=== PATIENT | female | born 1965 | race Caucasian/White ===

== ENCOUNTER → 2016-09-01 | Outpatient (CLI) | payer MEDICAID ==
[2016-09-01 09:05] LABS: ALT 21 U/L (9-52); AST 21 U/L (14-36); Alkaline Phosphatase 56 U/L (38-126); Anion Gap 10 mmol/L; Blood Urea Nitrogen 12 mg/dL (7-17); Calcium 9.6 mg/dL (8.4-10.2); Carbon Dioxide 25 mmol/L (22-30); Chloride 104 mmol/L (98-107); Cholesterol 218 mg/dL (<200); Glucose 101 mg/dL (74-99); Non-African American GFR(MDRD) >60 (>60 ml/min/1.73 sqM); Potassium 4.6 mmol/L (3.5-5.1); Sodium 139 mmol/L (137-145); Total Bilirubin 0.7 mg/dL (0.2-1.3); Triglycerides 57 mg/dL (<150)
[2016-09-01 09:15] LABS: HDL Cholesterol 158 mg/dL (40-60)
== END | disposition home or self-care (01) ==
LOC: LABWHC1 08:03
PROVIDERS: ATTEND Internal Medicine Endocrinology, Diabetes & Metabolism
DX: E10.65 Type 1 diabetes mellitus with hyperglycemia (principal)
CPT/HCPCS: 36415; 80053; 80061; 82043

== ENCOUNTER → 2017-03-02 | Outpatient (CLI) | payer MEDICAID | END | disposition home or self-care (01) | LOC: LABWHC1 10:04 | PROVIDERS: ATTEND Internal Medicine Endocrinology, Diabetes & Metabolism | DX: E10.65 Type 1 diabetes mellitus with hyperglycemia (principal) | CPT/HCPCS: 36415; 82533; 84443 ==

== ENCOUNTER → 2017-07-14 | Outpatient (CLI) | payer MEDICAID ==
[2017-07-14 08:47] LABS: Basophils # (A) 0.1 k/uL (0-0.2); Basophils % (A) 1 %; Eosinophils # (A) 0.2 k/uL (0-0.7); Eosinophils % (A) 4 %; HCT 45.8 % (34.0-46.0); HGB 14.6 gm/dL (11.4-16.0); Lymphocytes # (A) 1.6 k/uL (1.0-4.8); Lymphocytes % (A) 38 %; MCH 32.7 pg (25.0-35.0); MCHC 31.9 g/dL (31.0-37.0); MCV 102.6 fL (80.0-100.0); Mean Platelet Volume 6.3; Monocytes # (A) 0.5 k/uL (0-1.0); Monocytes % (A) 11 %; Neutrophils # (A) 1.8 k/uL (1.3-7.7); Neutrophils % (A) 42 %; Platelet Count 325 k/uL (150-450); RBC 4.47 m/uL (3.80-5.40); RDW 11.7 % (11.5-15.5); WBC 4.3 k/uL (3.8-10.6)
[2017-07-14 08:53] LABS: ALT 18 U/L (9-52); AST 16 U/L (14-36); Albumin 4.5 g/dL (3.5-5.0); Alkaline Phosphatase 62 U/L (38-126); Anion Gap 11 mmol/L; Blood Urea Nitrogen 17 mg/dL (7-17); Calcium 10.5 mg/dL (8.4-10.2); Carbon Dioxide 26 mmol/L (22-30); Chloride 104 mmol/L (98-107); Cholesterol 235 mg/dL (<200); Potassium 4.5 mmol/L (3.5-5.1); Sodium 141 mmol/L (137-145); Total Bilirubin 0.6 mg/dL (0.2-1.3); Total Protein 7.2 g/dL (6.3-8.2); Triglycerides 46 mg/dL (<150)
[2017-07-14 09:09] LABS: HDL Cholesterol 159 mg/dL (40-60); LDL Cholesterol,Calculated 67 mg/dL (0-99)
[2017-07-14 09:24] LABS: Glucose 48 mg/dL (74-99)
[2017-07-14 19:05] LABS: Hemoglobin A1C 8.8 % (4.0-6.0)
== END | disposition home or self-care (01) ==
LOC: LABWHC1 07:52
PROVIDERS: ATTEND Family Medicine
DX: Z00.00 Encounter for general adult medical examination without abnormal findings (principal); E11.9 Type 2 diabetes mellitus without complications; E55.9 Vitamin D deficiency, unspecified; E78.5 Hyperlipidemia, unspecified; R53.83 Other fatigue; I10 Essential (primary) hypertension
CPT/HCPCS: 36415; 80053; 80061; 82043; 82570; 83036; 85025

== ENCOUNTER → 2017-07-20 | Outpatient (CLI) | payer MEDICAID ==
--- NOTE | 2017-07-20 14:18 | MM ---
Reason for exam: screening (asymptomatic). Last mammogram was performed 1 year and 4 months ago. Physical Findings: A clinical breast exam by your physician is recommended on an annual basis and results should be correlated with mammographic findings. MG 3D Screening Mammo W/Cad Bilateral CC and MLO view(s) were taken. Prior study comparison: March 24, 2016, bilateral MG 3d screening mammo w/cad. March 24, 2015, bilateral MG 3d screening mammo w/cad. The breast tissue is extremely dense which could obscure a lesion on mammography. No suspicious calcifications are seen. Focal asymmetry upper outer left breast. This finding is changed when compared with previous exams. ASSESSMENT: Incomplete: need additional imaging evaluation, BI-RAD 0 RECOMMENDATION: Special view mammogram of the left breast. If lesion persists on supplemental views, image directed ultrasound is recommended. [facility] will attempt to contact patient to return for supplemental views and ultrasound if indicated.
--- NOTE | 2017-07-20 14:19 | MM ---
Reason for exam: additional evaluation requested from abnormal screening. Last mammogram was performed 1 year and 4 months ago. MG 3D Work Up W/Cad LT Spot compression CC, spot compression MLO, and ML view(s) were taken of the left breast. Prior study comparison: March 24, 2016, bilateral MG 3d screening mammo w/cad. March 24, 2015, bilateral MG 3d screening mammo w/cad. The breast tissue is heterogeneously dense. This may lower the sensitivity of mammography. There is no discrete abnormality including area of concern. These results were verbally communicated with the patient and result sheet given to the patient on 07/20/17. ASSESSMENT: Negative, BI-RAD 1 RECOMMENDATION: Return to routine screening mammogram schedule for both breasts.
== END | disposition home or self-care (01) ==
LOC: RADMAMWWP 12:56
PROVIDERS: ATTEND Obstetrics & Gynecology
DX: Z12.31 Encounter for screening mammogram for malignant neoplasm of breast (principal); R92.8 Other abnormal and inconclusive findings on diagnostic imaging of breast
CPT/HCPCS: 77067; 77065; 77063; G0279

== ENCOUNTER → 2017-08-09 | Outpatient (CLI) | payer MEDICAID ==
--- NOTE | 2017-08-09 12:58 | WWHP ---
[facility] - HISTORY AND PHYSICAL DATE OF DICTATION: 08/09/2017 CHIEF COMPLAINT: The patient is here for her routine gynecologic exam. HPI: This is a 51-year-old, G1, P1 with an LMP of 07/17/2017. Her is status post- vasectomy. The patient is without gynecologic complaints. Her menses are regular every month, typically lasting 6 days. 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 MEDICATIONS: 1. Valsartan 320 mg daily. 2. Levothyroxine 150 mcg daily. 3. Livalo 4 mg daily. 4. Co-Q10 two hundred mg daily. 5. Multivitamin 1 daily. 6. Vitamin B12 daily. 7. Lantus 30 to 32 units at bedtime. 8. NovoLog 3 to 5 units subcu with meals. ALLERGIES: PENICILLIN. PAST SURGICAL HISTORY: Spinal fusion, back surgery in 2005. PAST PATTERN FILER HISTORY: She has no history of STDs. SOCIAL HISTORY: She denies tobacco and drug use and has 0 to 3 alcohol-containing drinks per week. 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 FAMILY HISTORY: Paternal grandfather had esophageal cancer. Maternal grandmother had renal and lung cancer and a maternal grandfather had diabetes. REVIEW OF SYSTEMS: Weight has been stable. She denies respiratory, cardiac or GI problems. PHYSICAL EXAM: Blood pressure 148/96, height 5 feet 7 inches, weight 164 pounds. BMI 25. Temperature 96.5, pulse 99. This is a well-developed, well-nourished, white female, who is alert and oriented x3, in no acute distress. HEENT is within normal limits. NECK: Supple without mass or thyromegaly. CHEST AND LUNGS: Clear to auscultation. HEART: Regular rate and rhythm. Breasts are without mass or discharge. Axillary exam is negative for adenopathy. Back negative for CVA tenderness. ABDOMEN: Soft, nontender, without palpable masses. PELVIC EXAM: Normal external genitalia. Cervix and vagina appear normal. There is no evidence of prolapse. The uterus is mid-position nongravid size and nontender. There are no palpable adnexal masses or tenderness. Rectal exam is negative for mass or tenderness and is negative for occult blood. EXTREMITIES: Nontender. IMPRESSION: A 51-year-old gynecologically healthy female whose is status post vasectomy. PLAN: 1. Pap smear was deferred since she had normal one less than 2 years ago. 2. Self breast examination was discussed. 3. Mammogram was done last month and was benign. She will repeat this in one year. 4. Her blood pressure elevation was discussed. She is treated for chronic hypertension. I have recommended that she do self blood pressure checks on a regular basis and to follow up with Dr. Rosa for blood pressure elevations. 5. She will return in 1 year. MMODL / IJN: [id number] /
== END | disposition home or self-care (01) ==
LOC: WWCWWP 11:26
PROVIDERS: ATTEND Obstetrics & Gynecology
DX: Z53.9 Procedure and treatment not carried out, unspecified reason (principal)

== ENCOUNTER → 2017-11-29 | Outpatient (CLI) | payer MEDICAID ==
[2017-11-29 12:48] LABS: ALT 19 U/L (9-52); AST 19 U/L (14-36); Albumin 4.4 g/dL (3.5-5.0); Alkaline Phosphatase 62 U/L (38-126); Anion Gap 10 mmol/L; Blood Urea Nitrogen 14 mg/dL (7-17); Carbon Dioxide 26 mmol/L (22-30); Chloride 104 mmol/L (98-107); Cholesterol 218 mg/dL (<200); Glucose 79 mg/dL (74-99); Potassium 4.5 mmol/L (3.5-5.1); Sodium 140 mmol/L (137-145); Total Bilirubin 0.3 mg/dL (0.2-1.3); Total Protein 6.9 g/dL (6.3-8.2); Triglycerides 45 mg/dL (<150)
[2017-11-29 12:55] LABS: LDL Cholesterol,Calculated 58 mg/dL (0-99)
[2017-11-29 13:38] LABS: HDL Cholesterol 151 mg/dL (40-60)
[2017-11-29 20:26] LABS: Hemoglobin A1C 9.1 % (4.0-6.0)
== END | disposition home or self-care (01) ==
LOC: LABWHC1 11:06
PROVIDERS: ATTEND Internal Medicine Endocrinology, Diabetes & Metabolism
DX: E10.65 Type 1 diabetes mellitus with hyperglycemia (principal); E03.9 Hypothyroidism, unspecified
CPT/HCPCS: 36415; 80053; 80061; 82043; 82570; 83036; 84443

== ENCOUNTER → 2018-08-07 | Outpatient (CLI) | payer MEDICAID ==
--- NOTE | 2018-08-07 17:00 | US ---
EXAMINATION TYPE: US groin RT DATE OF EXAM: 08/07/2018 COMPARISON: NONE CLINICAL HISTORY: 52-year-old female M12.9 Athropathy,R10.2 Pelvic and Perineal Pain. TECHNIQUE: Multiple sonographic images of the right inguinal region without and with Valsalva. FINDINGS: Upon Valsalva, there is some bulging of intra-abdominal tissues in the region of Hesselbach's triangl e, medial to the inferior epigastric artery. The bulging does not extend anterior to the inferior epi gastric artery. No evidence for indirect inguinal hernia or femoral canal hernia. IMPRESSION: Some laxity on the right allowing for anterior bulging in the region of Hesselbach's triangle with Va lsalva. No isiah inguinal or femoral canal hernia is identified during the exam.
--- NOTE | 2018-08-07 17:02 | US ---
EXAMINATION TYPE: US groin LT DATE OF EXAM: 08/07/2018 COMPARISON: NONE CLINICAL HISTORY: 52-year-old female M12.9 Athropathy,R10.2 Pelvic and Perineal Pain. TECHNIQUE: Multiple sonographic images of the left inguinal region without and with Valsalva. FINDINGS: Left groin scanned for hernia, with and without valsalva. No inguinal hernia identified by ultrasound. IMPRESSION: Valsalva maneuver does not clearly depicted a left-sided inguinal hernia by ultrasound. Note that thi s is a highly user dependent exam.
--- NOTE | 2018-08-08 03:37 | US ---
EXAMINATION TYPE: US pelvis complete transvag DATE OF EXAM: 08/07/2018 COMPARISON: NONE CLINICAL HISTORY: 52-year-old female M12.9 Athropathy,R10.2 Pelvic and Perineal Pain. Hx of pelvic congestion syndrome. TECHNIQUE: Transabdominal sonographic images of the pelvis were acquired. Transvaginal sonographic images were medically necessary to better assess the following anatomy: Left ovary Date of LMP: 08/05/18 FINDINGS: EXAM MEASUREMENTS: Uterus: 8.6 x 4.5 x 5.5 cm Endometrial Stripe: 0.6 cm Right Ovary: 2.3 x 1.9 x 1.6 cm Left Ovary: 2.2 x 1.4 x 1.0 cm 1. Uterus: Anteverted wnl 2. Endometrium: wnl 3. Right Ovary: wnl 4. Left Ovary: echogenic focus measuring 0.4 x 0.2 x 0.4cm, nonspecific. 5. Bilateral Adnexa: Prominent vessels bilateral 6. Posterior cul-de-sac: wnl IMPRESSION: 1. Some prominent adnexal vascularity may be physiologic but can also be seen in the setting of pelvi c congestion syndrome. Clinically correlate. 2. A nonspecific 4 mm echogenic focus in the left ovary. A focus of calcification or small ovarian de rmoid are in the differential. Questionable clinical significance. Consider 6 month follow-up to [facility] wilson.
== END ==
LOC: RADUSWWP 13:40
PROVIDERS: ATTEND Family Medicine
DX: N94.89 Other specified conditions associated with female genital organs and menstrual cycle (principal); L57.4 Cutis laxa senilis; R10.2 Pelvic and perineal pain; M12.9 Arthropathy, unspecified
CPT/HCPCS: 76830; 76856

== ENCOUNTER → 2018-09-06 | Outpatient (CLI) | payer MEDICAID ==
--- NOTE | 2018-09-06 11:53 | MM ---
Reason for exam: screening (asymptomatic). Last mammogram was performed 1 year and 2 months ago. Physical Findings: A clinical breast exam by your physician is recommended on an annual basis and results should be correlated with mammographic findings. MG 3D Screening Mammo W/Cad Bilateral CC and MLO view(s) were taken. XCCL view(s) were taken of the right breast. Prior study comparison: July 20, 2017, left breast MG 3d work up w/cad LT. July 20, 2017, bilateral MG 3d screening mammo w/cad. The breast tissue is heterogeneously dense. This may lower the sensitivity of mammography. There are benign appearing round calcifications bilaterally. Asymmetric breast tissue in the left breast is stable. There is no discrete abnormality. ASSESSMENT: Negative, BI-RAD 1 RECOMMENDATION: Routine screening mammogram of both breasts in 1 year.
== END | disposition home or self-care (01) ==
LOC: RADMAMWWP 08:34
PROVIDERS: ATTEND Family Medicine
DX: Z12.31 Encounter for screening mammogram for malignant neoplasm of breast (principal)
CPT/HCPCS: 77063; 77067

== ENCOUNTER → 2019-02-15 | Outpatient (CLI) | payer MEDICAID ==
[2019-02-15 08:26] LABS: Basophils % (A) 1 %; Eosinophils # (A) 0.2 k/uL (0-0.7); Eosinophils % (A) 5 %; HCT 40.4 % (34.0-46.0); HGB 13.1 gm/dL (11.4-16.0); Lymphocytes # (A) 1.1 k/uL (1.0-4.8); Lymphocytes % (A) 31 %; MCH 32.6 pg (25.0-35.0); MCHC 32.5 g/dL (31.0-37.0); MCV 100.2 fL (80.0-100.0); Mean Platelet Volume 6.6; Monocytes # (A) 0.3 k/uL (0-1.0); Monocytes % (A) 8 %; Neutrophils # (A) 1.8 k/uL (1.3-7.7); Neutrophils % (A) 52 %; Platelet Count 293 k/uL (150-450); RBC 4.03 m/uL (3.80-5.40); RDW 11.8 % (11.5-15.5); WBC 3.5 k/uL (3.8-10.6)
[2019-02-15 09:17] LABS: Appearance,Urine Cloudy (Clear); Bacteria,Urine Moderate /hpf; Bilirubin,Urine Negative (Negative); Blood,Urine Negative (Negative); Color,Urine Yellow; Glucose,Urine (UA) Trace (Negative); Ketones,Urine Negative (Negative); Leukocyte Esterase,Urine Small (Negative); Mucus,Urine Rare /hpf; Nitrite,Urine Negative (Negative); PH, Urine 5.5 (5.0-8.0); Protein,Urine Negative (Negative); Specific Gravity,Urine 1.018 (1.001-1.035); Squamous Epithelial Cell,Urine 15 /hpf (0-4); Urobilinogen,Urine <2.0 mg/dL (<2.0); WBC,Urine 3 /hpf (0-5)
[2019-02-15 09:53] LABS: Erythrocyte Sedimentation Rate 3 mm/hr (0-20)
[2019-02-15 17:23] LABS: African American GFR (CKD) 98.9 (60.0-200.0); Albumin 4.2 g/dL (3.80-4.90); Albumin/Globulin Ratio 2.33 (1.60-3.17); Anion Gap 6.7 mmol/L (4.00-12.00); Calcium 9.6 mg/dL (8.7-10.3); Carbon Dioxide 26.3 mmol/L (21.6-31.8); Chol/HDL Ratio 1.93; Globulin 1.8 g/dL (1.6-3.3); LDL Cholesterol,Calculated 95.2 mg/dL (0.0-131.0); Non-African American GFR(CKD) 85.4 (60.0-200.0); Potassium 4.5 mmol/L (3.5-5.5); Total Bilirubin 0.5 mg/dL (0.2-1.2); VLDL Calculation 17.8 mg/dL (5.00-40.00)
[2019-02-15 17:39] LABS: Vitamin D 25 Hydroxy 16.2 ng/mL (30.0-100.0)
[2019-02-15 18:45] LABS: Urine Creatinine 80.4 mg/dL
== END ==
LOC: LABWHC1 07:21
PROVIDERS: ATTEND Internal Medicine Endocrinology, Diabetes & Metabolism
DX: Z00.00 Encounter for general adult medical examination without abnormal findings (principal); E10.65 Type 1 diabetes mellitus with hyperglycemia; E03.8 Other specified hypothyroidism
CPT/HCPCS: 36415; 80053; 80061; 81001; 82043; 82306; 82570; 82607; 84443; 85025; 85652

== ENCOUNTER → 2019-04-02 | Outpatient (CLI) | payer MEDICAID ==
--- NOTE | 2019-04-03 03:50 | MR ---
EXAMINATION TYPE: MR lumbar spine wo/w con DATE OF EXAM: 04/02/2019 COMPARISON: NONE HISTORY: 53-year-old female Lumbar disc prolapse with radiculopathy Technique: Multiplanar, multisequence images of the lumbar spine were obtained before and after admin istration of 7.5 ml mL intravenous Gadavist gadolinium contrast. FINDINGS: There is evidence of prior L4-S1 posterior fusion. Mature interbody ankylosis is present across L5-S1 with a fixed grade 1 anterolisthesis secondary to old spondylolysis. Corresponding laminectomies at the fused levels. Above the fusion at L3-L4, there is moderate degenerative disc disease with desiccated and diffusely bulging disc. Heavy ligamentum flavum thickening and facet arthropathy is present along with enhancin g right paracentral and intraforaminal annular fissure. Changes result in overall moderate spinal canal stenosis here with moderate to severe left and modera te right neuroforaminal stenosis. No suspicious bone marrow placement. Conus medullaris is normal. The remaining alignment is maintaine d. From T12 through L3 levels, no spinal canal or neuroforaminal stenosis. At the fused L4-L5 level, dorsal decompression of the spinal canal. No significant neural foraminal s tenosis. At the fused L5-S1 level, fixed grade 2 anterolisthesis with dorsal decompression of the spinal canal . Suspected chronic moderate left neuroforaminal narrowing and probably mild to moderate on the right . When correlating with the sagittal postcontrast images, no definite suspicious perineural or epidural enhancing granulation tissue is identified. IMPRESSION: 1. Prior L4-S1 posterior fusion. Mature interbody ankylosis across L5-S1 where there is a fixed grade 2 anterolisthesis. Corresponding laminectomies. 2. Accelerated degenerative disc disease above the fusion at L3-L4. Diffuse bulging disc along with t hickened ligamentum flavum and hypertrophic facet arthropathy here contributes to moderate spinal can al stenosis with moderate to severe left and moderate right neuroforaminal stenosis. A right paracent ral and intraforaminal enhancing annular fissure is noted at this level. 3. At the fused L5-S1, suspect a chronic moderate left and probably mild to moderate right neuroforam inal stenoses. Metal hardware artifact causes some limitation in assessment here.
== END | disposition home or self-care (01) ==
LOC: RADMRIMAIN 12:42
PROVIDERS: ATTEND Family Medicine
DX: M48.061 Spinal stenosis, lumbar region without neurogenic claudication (principal); M43.17 Spondylolisthesis, lumbosacral region; M51.26 Other intervertebral disc displacement, lumbar region; M51.36 Other intervertebral disc degeneration, lumbar region; M46.96 Unspecified inflammatory spondylopathy, lumbar region; M43.27 Fusion of spine, lumbosacral region; M24.28 Disorder of ligament, vertebrae
CPT/HCPCS: 72158; A9585

== ENCOUNTER → 2019-06-21 | Outpatient (CLI) | payer MEDICAID ==
--- NOTE | 2019-06-23 14:05 | CT ---
EXAMINATION TYPE: CT pelvis wo con DATE OF EXAM: 06/21/2019 COMPARISON: MRI of the lumbar spine dated 04/02/2019 HISTORY: Pain and swelling to groin, more on the Rt than Lt CT DLP: 621 mGycm Automated exposure control for dose reduction was used. FINDINGS: No superficial inguinal adenopathy or adenopathy within the pelvis is seen. The bowel is nondilated. Appendix is retrocecal, air-filled and within normal limits. No periappendiceal fat stranding. Very m ild atheromatous changes are seen in the descending thoracic aorta. There is a small fat filled periu mbilical hernia with a neck measuring 1.6 cm. Adjacent loop of bowel does not enter the hernia. The cervix appears slightly bulky although poorly evaluated on CT. Pelvic ultrasound could further as sess this finding or direct visualization. There is no hernia seen. There is mild to moderate arthropathy of both hips with subchondral cyst formation of the acetabular roofs, small marginal osteophyte of the right acetabular rim, and slight cephalad joint space narrowi ng as well as acetabular roof sclerosis. Femoral heads maintain a normal rounded contour. No cam defo rmity. Osseous structures are intact. Punctate probable bone island the left pubic bone is incidental ly noted. There is grade 2 anterolisthesis of L5 on S1, surgically fixated. Anterolisthesis measures 1.5 cm. Vacuum disc disease is seen at L3-L4 and calcification of the intervertebral disc at L4-L5. S urgical fixation rods and pedicular screws traverse the L4-S1 vertebral bodies. Surgical resection of the posterior elements is seen. Probable prior healed coccygeal fracture with anterior angulation. IMPRESSION: 1. NO INGUINAL HERNIA, FLUID COLLECTION OR SUPERFICIAL ADENOPATHY TO CORRESPOND TO THIS PATIENT'S MADDIE IN SWELLING. 2. MILD TO MODERATE BILATERAL FEMORAL ACETABULAR ARTHROPATHY. NO FEMORAL HEAD COLLAPSE NOR CAM DEFORM ITY. 3. SURGICAL FIXATION OF GRADE 2 ANTEROLISTHESIS OF L5 ON S1 AND DEGENERATIVE DISC DISEASE OF THE VISU ALIZED LUMBAR SPINE AT L3-L4 AND L4-L5. 4. THERE IS BULKINESS OF THE CERVIX, WHICH IS POORLY VISUALIZED ON CT. PELVIC ULTRASOUND OR DIRECT SUALIZATION COULD FURTHER EVALUATE THIS FINDING.
== END | disposition home or self-care (01) ==
LOC: RADCTMAIN 11:21
PROVIDERS: ATTEND Neurological Surgery
DX: M51.16 Intervertebral disc disorders with radiculopathy, lumbar region (principal); M43.17 Spondylolisthesis, lumbosacral region; M46.1 Sacroiliitis, not elsewhere classified
CPT/HCPCS: 72192

== ENCOUNTER → 2019-07-22 | Outpatient (CLI) | payer MEDICAID ==
[2019-07-22 12:04] LABS: African American GFR (CKD) 98.9 (60.0-200.0); Albumin 4.1 g/dL (3.80-4.90); Albumin/Globulin Ratio 2.28 (1.60-3.17); Anion Gap 5.3 mmol/L (4.00-12.00); BUN/Creat Ratio 13.75 Ratio (12.00-20.00); Calcium 9.5 mg/dL (8.7-10.3); Carbon Dioxide 25.7 mmol/L (21.6-31.8); Chol/HDL Ratio 1.96; Globulin 1.8 g/dL (1.6-3.3); LDL Cholesterol,Calculated 93.8 mg/dL (0.0-131.0); Non-African American GFR(CKD) 85.4 (60.0-200.0); Potassium 4.7 mmol/L (3.5-5.5); Total Bilirubin 0.3 mg/dL (0.3-1.2); Total Protein 5.9 g/dL (6.2-8.2); VLDL Calculation 13.2 mg/dL (5.00-40.00)
[2019-07-22 12:59] LABS: Hemoglobin A1C 8.7 % (4.0-6.0)
== END | disposition home or self-care (01) ==
LOC: LABWHC1 06:45
PROVIDERS: ATTEND Internal Medicine Endocrinology, Diabetes & Metabolism
DX: E10.65 Type 1 diabetes mellitus with hyperglycemia (principal)
CPT/HCPCS: 36415; 80053; 80061; 82043; 82570; 83036; 84443

== ENCOUNTER → 2019-10-15 | Outpatient (CLI) | payer MEDICAID ==
--- NOTE | 2019-10-15 10:22 | XR ---
EXAMINATION TYPE: XR lumbosacral spine min 4V DATE OF EXAM: 10/15/2019 CLINICAL HISTORY: Back surgery with some residual left leg numbness TECHNIQUE: Frontal, lateral, and dynamic flexion and extension lateral images of the lumbar spine are obtained. COMPARISON: MRI lumbar spine April 02, 2019 FINDINGS: There are 5 lumbar type vertebral bodies redemonstrated. New metallic cage and posterior i nterpedicular rods and screws transfixing L3-L4 levels. Interval improvement in disc space narrowing with satisfactory alignment after surgical correction at this level. Interval removal of majority of surgical hardware L4-S1 levels. Single retained left-sided screw S1 level noted. Grade 2 anterolisthe sis L5 on S1 is slightly more prominent from prior MRI. Vertebral body heights and disc space heights above the L3 level remains satisfactory. Artificial disc material L4-L5 level again seen. Moderate t o advanced disc space narrowing L5-S1 level redemonstrated. Multilevel posterior laminectomy defects and spinous process resection lower lumbar spine again seen. Alignment at the surgical site satisfact ory. Dynamic images show limited flexion and extension without change in alignment. Overlying soft ti ssue is unremarkable. IMPRESSION: As above.
== END | disposition home or self-care (01) ==
LOC: RADXRMAIN 09:39
PROVIDERS: ATTEND Neurological Surgery
DX: M48.061 Spinal stenosis, lumbar region without neurogenic claudication (principal); M54.16 Radiculopathy, lumbar region; M96.1 Postlaminectomy syndrome, not elsewhere classified
CPT/HCPCS: 72110

== ENCOUNTER → 2020-01-21 | Outpatient (CLI) | payer MEDICAID ==
--- NOTE | 2020-01-22 07:12 | MR ---
EXAMINATION TYPE: MR lumbar spine wo con DATE OF EXAM: 01/21/2020 COMPARISON: MRI lumbar spine April 02, 2019. Lumbar spine x-ray October 15, 2019. HISTORY: Surgery in August to remove old hardware. Retained screw in Sacral area, New Hardware L3. Dev eloped foot drop in Left foot. Severe lower back pain, gets a catching sensation when trying to bend over. TECHNIQUE: Multiplanar, multisequence imaging of the lumbar spine is performed without IV contrast. FINDINGS: Sagittal images of the lumbar spine show vertebral body heights to remain satisfactory. The re is stable grade 1 anterolisthesis L5 on S1. There is interval removal of majority of surgical hard zamudio L4-S1 level with artifact from retained left S1 interpedicular screw corresponding to recent x-r ay. There is interval placement of new posterior interpedicular rods and screws L3-L4 level and artif act from metallic disc material. Posterior scar tissue with spinous process resection redemonstrated. Diffuse disc desiccation above L3 level redemonstrated but heights maintained. Advanced disc space n arrowing with [id number] appearance of lumbosacral junction redemonstrated. The conus medullaris r emains normal in position and signal ending at T12-L1 disc space. The bone marrow signal intensity r emains overall unremarkable. Axial images show T12-L1 and L1-L2 levels to remain within normal limits. Axial images at the L2-L3 level show no artifact from L3 surgery otherwise are felt within normal santos its. Axial images at the L3-L4 level show no artifact from posterior pedicular rods and screws and metalli c disc material. There is marked interval improvement in the degree of spinal canal stenosis current study axial image 16 versus prior study image 20. Bilateral neural foramina are thought patent. Poste rior spinous process resection redemonstrated. Axial images at the L4-L5 level show bilateral laminectomy defects and spinous process resection. The re is interval improvement in spinal canal posterior effacement after surgery comparing axial image 1 0 versus prior study image 14. Lateral facet arthropathy remains present. Bilateral neural foramina a re felt patent. Axial images at the L5-S1 level show stable spondylolisthesis. Spinal canal is preserved. Posterior s car tissue is seen. Exiting bilateral neural foramina show stable mild to moderate left greater than right bilateral neural foraminal narrowing without definitive new nerve effacement. No suspicious incidental retroperitoneal findings. Paraspinal muscle bulk is maintained. IMPRESSION: Interval removal of lower lumbar surgical hardware with new L3-L4 surgical change. Satisf actory alignment at this level. Stable spondylolisthesis L5-S1 level. Marked interval improvement in degree of spinal canal stenosis L3-L4 and L4-L5 levels after more recent surgery.
== END | disposition home or self-care (01) ==
LOC: RADMRIMAIN 06:31
PROVIDERS: ATTEND Neurological Surgery
DX: M48.061 Spinal stenosis, lumbar region without neurogenic claudication (principal); M43.17 Spondylolisthesis, lumbosacral region; Z98.890 Other specified postprocedural states
CPT/HCPCS: 72148

== ENCOUNTER → 2020-01-21 | Outpatient (CLI) | payer MEDICAID ==
--- NOTE | 2020-01-21 09:25 | MM ---
Reason for exam: screening (asymptomatic). Last mammogram was performed 1 year and 4 months ago. History: Family history of breast cancer in paternal cousin. Physical Findings: A clinical breast exam by your physician is recommended on an annual basis and results should be correlated with mammographic findings. MG 3D Screening Mammo W/Cad Bilateral CC and MLO view(s) were taken. Prior study comparison: September 06, 2018, bilateral MG 3d screening mammo w/cad. July 20, 2017, left breast MG 3d work up w/cad LT. The breast tissue is heterogeneously dense. This may lower the sensitivity of mammography. There are benign appearing round calcifications in the left breast. There is no discrete abnormality. ASSESSMENT: Benign, BI-RAD 2 RECOMMENDATION: Routine screening mammogram of both breasts in 1 year.
== END | disposition home or self-care (01) ==
LOC: RADMAMWWP 08:03
DX: Z12.31 Encounter for screening mammogram for malignant neoplasm of breast (principal)
CPT/HCPCS: 77063; 77067

== ENCOUNTER → 2020-06-03 | Outpatient (CLI) | payer MEDICAID ==
--- NOTE | 2020-06-03 16:17 | XR ---
EXAMINATION TYPE: XR lumbar spine with bend/flex, 7 views DATE OF EXAM: 06/03/2020 Comparison: 10/15/2019 Clinical History: 54-year-old female revision lumbar surgery on 08/08/2019. Original surgery 15 years a go. Old L4-S1 hardware remote and new L3-L4 hardware placed. Continued pain with catching sensation w ith bending. M51.16 Findings: Images demonstrate L3-L4 posterior and interbody fusion. Left-sided transpedicular S1 screw fragment remains in place. Corresponding laminectomies along the surgical levels. There appears to be lateral osseous fusion at least from L4 through S1 levels on the AP view. Grade 2 versus grade 3 anterolisthesis is redemonstrated at L5-S1 this does not clearly change on fle xion-extension views. Trace grade 1 retrolisthesis at L4-L5 also is fixed. Normal alignment at the recently fused L3-L4 level without dynamic subluxation. Above the fusion at L2-L3, there is the development of a trace grade 1 retrolisthesis with extension and excessive narrowing of the posterior aspect of the disc interspace. Vertebral body heights are preserved. Impression: 1. Interval placement of L3-L4 posterior and interbody fusion. No dynamic subluxation at this level. 2. Fixed grade 1 retrolisthesis at the previously fused L4-L5 level and fixed grade 2 or 3 anterolist hesis at the previously fused L5-S1 level. There is lateral osseous fusion at these levels with a ret ained left S1 pedicular screw fragment. 3. There is 5 mm of dynamic retrolisthesis at L2-L3 upon extension, also with the development of post erior disc space narrowing upon extension.
== END | disposition home or self-care (01) ==
LOC: RADXRMAIN 13:56
PROVIDERS: ATTEND Neurological Surgery
DX: M48.061 Spinal stenosis, lumbar region without neurogenic claudication (principal); M51.16 Intervertebral disc disorders with radiculopathy, lumbar region; M43.16 Spondylolisthesis, lumbar region
CPT/HCPCS: 72114

== ENCOUNTER → 2020-08-17 | Outpatient (CLI) | payer MEDICAID ==
--- NOTE | 2020-08-18 15:50 | US ---
EXAMINATION TYPE: US pelvis complete transvag DATE OF EXAM: 08/17/2020 COMPARISON: US 2019 CLINICAL HISTORY: N92.0 EXCESSIVE AND FREQ MENSES. TECHNIQUE: Transvaginal (TV) and Transabdominal (TA) . Transabdominal sonographic images of the pel vis were acquired. Transvaginal sonographic images were medically necessary to better assess the fol lowing anatomy: ovaries and endometrium. Date of LMP: 08/02/2020 EXAM MEASUREMENTS: Uterus: 10.0 x 5.6 x 6.6cm Endometrial Stripe: 1.1 cm Right Ovary: 3.0 x 2.1 x 1.7 cm Left Ovary: 2.2 x 2.2 x 1.1 cm 1. Uterus: Anteverted wnl 2. Endometrium: measures 1.1 cm 3. Right Ovary: follicle measures 1.8 x 1.0 x 1.4 cm 4. Left Ovary: 0.4 cm calcification 5. Bilateral Adnexa: wnl 6. Posterior cul-de-sac: no free fluid IMPRESSION: 1. Small right ovarian cyst.
== END ==
LOC: RADUSWWP 15:34
PROVIDERS: ATTEND Family Medicine
DX: N83.201 Unspecified ovarian cyst, right side (principal)
CPT/HCPCS: 76830; 76856

== ENCOUNTER → 2021-03-02 | Outpatient (CLI) | payer MEDICAID ==
--- NOTE | 2021-03-04 12:00 | MM ---
Reason for exam: screening (asymptomatic). Last mammogram was performed 1 year and 1 month ago. History: Family history of breast cancer in paternal cousin. Physical Findings: A clinical breast exam by your physician is recommended on an annual basis and results should be correlated with mammographic findings. MG 3D Screening Mammo W/Cad Bilateral CC and MLO view(s) were taken. Prior study comparison: January 21, 2020, bilateral MG 3d screening mammo w/cad. September 06, 2018, bilateral MG 3d screening mammo w/cad. The breast tissue is heterogeneously dense. This may lower the sensitivity of mammography. There is no discrete abnormality. No significant changes when compared with prior studies. ASSESSMENT: Negative, BI-RAD 1 RECOMMENDATION: Routine screening mammogram of both breasts in 1 year.
== END | disposition home or self-care (01) ==
LOC: RADMAMWWP 15:54
PROVIDERS: ATTEND Family Medicine
DX: Z12.31 Encounter for screening mammogram for malignant neoplasm of breast (principal); Z80.3 Family history of malignant neoplasm of breast
CPT/HCPCS: 77063; 77067

== ENCOUNTER → 2024-03-05 | Outpatient (CLI) | payer BC ==
[2024-03-05 15:16] LABS: Basophils # (A) 0.05 X 10*3/uL (0.00-0.10); Basophils % (A) 0.9 %; Eosinophils # (A) 0.15 X 10*3/uL (0.04-0.35); Eosinophils % (A) 2.7 %; HGB 12.9 g/dL (12.0-15.0); Lymphocytes # (A) 2.03 X 10*3/uL (0.90-5.00); Lymphocytes % (A) 36.2 %; MCH 32.8 pg (27.0-32.0); MCHC 33.9 g/dL (32.0-37.0); MCV 96.7 FL (80.0-97.0); Mean Platelet Volume 9.1 FL (9.5-12.2); Monocytes # (A) 0.65 X 10*3/uL (0.20-1.00); Monocytes % (A) 11.6 %; NRBC Per 100 WBC 0 X 10*3/uL (0.00-0.01); Neutrophils # (A) 2.71 X 10*3/uL (1.80-7.70); Neutrophils % (A) 48.2 %; Platelet Count 288 X 10*3/uL (140-440); RBC 3.93 X 10*6/uL (4.10-5.20); RDW 11.9 % (11.5-14.5); WBC 5.61 X 10*3/uL (4.50-10.00)
[2024-03-05 15:25] LABS: ALT 11 U/L (8-44); AST 14 U/L (13-35); Albumin 4.4 g/dL (3.8-4.9); Albumin/Globulin Ratio 1.91 Ratio (1.60-3.17); Alkaline Phosphatase 107 U/L (41-126); BUN/Creat Ratio 22.62 Ratio (12.00-20.00); Blood Urea Nitrogen 18.1 mg/dL (9.0-27.0); Calcium 10.2 mg/dL (8.7-10.3); Chloride 101 mmol/L (96-109); Chol/HDL Ratio 2.59 Ratio; Globulin 2.3 g/dL (1.6-3.3); Glucose 177 mg/dL (70-110); LDL Cholesterol,Calculated 150.5 mg/dL (0.0-131.0); Potassium 4.2 mmol/L (3.5-5.5); Sodium 140 mmol/L (135-145); T4, Free (Free Thyroxine) 1.84 ng/dL (0.80-1.80); Total Bilirubin 0.8 mg/dL (0.3-1.2); Total Protein 6.7 g/dL (6.2-8.2); VLDL Calculation 11.54 mg/dL (5.00-40.00)
[2024-03-05 17:37] LABS: Microalbumin Creatinine Ratio <10 mg/g Cr (0-30)
== END | disposition home or self-care (01) ==
LOC: LABWHC1 12:01
PROVIDERS: ATTEND Family Medicine
DX: I10 Essential (primary) hypertension (principal); E03.9 Hypothyroidism, unspecified; E10.65 Type 1 diabetes mellitus with hyperglycemia
CPT/HCPCS: 36415; 80053; 80061; 82043; 82570; 84439; 84443; 84481; 85025

== ENCOUNTER → 2024-10-24 | Outpatient (CLI) | payer MEDICAID ==
[2024-10-24 10:27] LABS: Basophils # (A) 0.08 X 10*3/uL (0.00-0.10); Basophils % (A) 1.7 %; Eosinophils # (A) 0.17 X 10*3/uL (0.04-0.35); Eosinophils % (A) 3.6 %; HCT 39.9 % (37.2-46.3); HGB 13.5 g/dL (12.0-15.0); Lymphocytes % (A) 29.9 %; MCH 33.6 pg (27.0-32.0); MCHC 33.8 g/dL (32.0-37.0); MCV 99.3 FL (80.0-97.0); Mean Platelet Volume 9.2 FL (9.5-12.2); Monocytes # (A) 0.59 X 10*3/uL (0.20-1.00); Monocytes % (A) 12.6 %; NRBC Per 100 WBC 0 X 10*3/uL (0.00-0.01); Neutrophils # (A) 2.44 X 10*3/uL (1.80-7.70); Platelet Count 315 X 10*3/uL (140-440); RBC 4.02 X 10*6/uL (4.10-5.20); RDW 11.5 % (11.5-14.5); WBC 4.69 X 10*3/uL (4.50-10.00)
[2024-10-24 10:44] LABS: ALT 13 U/L (8-44); AST 16 U/L (13-35); Albumin 4.2 g/dL (3.8-4.9); Albumin/Globulin Ratio 1.75 Ratio (1.60-3.17); Alkaline Phosphatase 108 U/L (41-126); BUN/Creat Ratio 18.75 Ratio (12.00-20.00); Calcium 9.6 mg/dL (8.7-10.3); Carbon Dioxide 26.8 mmol/L (21.6-31.8); Chloride 99 mmol/L (96-109); Chol/HDL Ratio 2.77 Ratio; Estradiol <20.0 pg/mL; Globulin 2.4 g/dL (1.6-3.3); Glucose 152 mg/dL (70-110); Potassium 4.1 mmol/L (3.5-5.5); Sodium 137 mmol/L (135-145); Total Bilirubin 0.4 mg/dL (0.3-1.2); Total Protein 6.6 g/dL (6.2-8.2)
[2024-10-24 11:13] LABS: Follicle Stimulating Hormone 61.5 mIU/mL; Luteinizing Hormone 43.6 mIU/mL
== END | disposition home or self-care (01) ==
LOC: LABWHC1 07:31
PROVIDERS: ATTEND Family Medicine
DX: Z00.00 Encounter for general adult medical examination without abnormal findings (principal); N95.1 Menopausal and female climacteric states
CPT/HCPCS: 36415; 80053; 80061; 82626; 82670; 83001; 83002; 84144; 84402; 84443; 85025

== ENCOUNTER → 2024-11-21 | Outpatient (CLI) | payer MEDICAID ==
[2024-11-21 10:36] LABS: T4, Free (Free Thyroxine) 1.19 ng/dL (0.80-1.80)
== END | disposition home or self-care (01) ==
LOC: LABWHC1 07:23
PROVIDERS: ATTEND Family Medicine
DX: E03.9 Hypothyroidism, unspecified (principal)
CPT/HCPCS: 36415; 84439; 84443